=== PATIENT | male | born 2000 | race Two or more races ===

== ENCOUNTER 2025-01-08 21:13 | Emergency (ER) | payer OTHER ==
[~2025-01-08] VITALS: Ht 172.7 cm; Wt 72.7 kg
--- NOTE | 2025-01-08 21:28 | ED.PDOC ---
Psychiatric HPI Comments 24 year old male with a Hx of Bipolar was BIBA for the c/c of Altered Mental Status. Per EMS pt was at [facility], and was allowed to leave. Pt is noted to have left the facility around 7pm, proceeded to return to his room at 7:50pm, ingested a substance, and is noted to have been altered since. EMS states pt was compliant on scene, but is noted to be refusing to talk or discuss what he ingested. Time Seen by MD: 21:22 Reviewed Notes: Nurses Notes, Electronic Repair Troubleshooter Notes, Medications, Allergies Information Source: Emergency Med Personnel Mode of Arrival: EMS Severity: Unable to Care for Self Severity of Pain: None Severity of Mental Status: Moderate Severity of Symptoms: Moderate Timing: Hours Duration: Since onset, Hours Prehospital treatment: None Presents with: None Ingestion: Unknown Circumstance: Altered Mental Status Current substance abuse: Unknown Stressors: None History of: Bipolar Location: None Location of pain or injury: None Associated signs and symptoms: ETOH Family History Family History: Unknown Social History Smoker: Non-Smoker Alcohol: Denies ETOH Use Drugs: Denies Drug Use Lives In: Home Constitutional: denies: chills, diaphoresis, fatigue, fever, malaise, sweats, weakness, others EENTM: denies: blurred vision, double vision, ear bleeding, ear discharge, ear drainage, ear pain, ear ringing, eye pain, eye redness, hearing loss, mouth pain, mouth swelling, nasal discharge, nose bleeding, nose congestion, nose pain, photophobia, tearing, throat pain, throat swelling, voice changes, others Respiratory: denies: cough, hemoptysis, orthopnea, SOB at rest, shortness of breath, SOB with excertion, stridor, wheezing, others Cardiovascular: denies: chest pain, dizzy spells, diaphoresis, Dyspnea on exertion, edema, irregular heart beat, left arm pain, lightheadedness, palpitations, PND, syncope, others Gastrointestinal: denies: abdomen distended, abdominal pain, blood streaked bowels, constipated, diarrhea, dysphagia, difficulty swallowing, hematemesis, melena, nausea, poor appetite, poor fluid intake, rectal bleeding, rectal pain, vomiting, others Genitourinary: denies: burning, dysuria, flank pain, frequency, hematuria, incontinence, penile discharge, penile sore, pain, testicle pain, testicle swelling, urgency, others Neurological: denies: dizziness, fainting, headache, left sided numbness, left sided weakness, numbness, paresthesia, pre-existing deficit, right sided numbness, right sided weakness, seizure, speech problems, tingling, tremors, weakness, others Musculoskeletal: denies: back pain, gout, joint pain, joint swelling, muscle pain, muscle stiffness, neck pain, others Integumetry: denies: bruises, change in color, change in hair/nails, dryness, laceration, lesions, lumps, rash, wounds, others Allergic/Immunocompromised: denies: Difficulty Healing, Frequent Infections, Hives, Itching, others Hematologic/Lymphatic: denies: anemia, blood clots, easy bleeding, easy bruising, swollen glands, others Endocrine: denies: excessive hunger, excessive sweating, excessive thirst, excessive urination, flushing, intolerance to cold, intolerance to heat, unexplained weight gain, unexplained weight loss, others Psychiatric: denies: anxiety, bipolar disorder, depression, hopeless, panic disorder, schizophrenia, sleepless, suicidal, others Unable to Obtain due to: Altered Mental Status All Other Systems: Reviewed and Negative Physical Exam General Appearance: Moderate Distress, Normal, Other (Altered) HEENT: Normal ENT Inspection, Pharynx Normal, TMs Normal Neck: Full Range of Motion, Non-Tender, Normal, Normal Inspection Respiratory: Chest Non-Tender, Lungs Clear, No Accessory Muscle Use, No Respiratory Distress, Normal Breath Sounds Cardiovascular: No Edema, No JVD, No Murmur, No Gallop, Normal Peripheral Pulses, Regular Rate/Rhythm Breast Exam: Deferred Gastrointestinal: Non Tender, No Pulsatile Mass, Normal Bowel Sounds, Soft Genitalia: Deferred Pelvic: Deferred Rectal: Deferred Extremities: No calf tenderness, Normal capillary refill, Normal inspection, Normal range of motion, Non-tender, No pedal edema Musculoskeletal : Apperance: Normal Neurologic: Disoriented, No Motor Deficits, Normal Affect, No Sensory Deficits, Other (Altered) Cerebellar Function: Normal Reflexes: Normal Skin: Dry, Normal Color, Warm Lymphatic: No Adenopathy Was a procedure done? Was a procedure done?: No Psych Differential Dx Psych. Differential Dx: Anxiety, Bipolar Disorder, Depression, Hopeless, S chizoprenia, Sleepless, Suicidal OD Differential Dx: Alcohol Abuse, Anxiety, Bipolar Disorder, Conversion Disorder, Delirium, Depression, Drug Overdose, Accidental, Intentional, Hallucinations, Panic Disorder, Personality Disorder, Schizophrenia, Substance Abuse, Suicidal Attempt Suicidal Differential Dx: Alcohol Abuse, Anxiety, Bipolar Disorder, Conversion Disorder, Depression, Personality Disorder, Schizoprenia, Substance Abuse Intoxication Differential Dx: Alcohol Withdraw Syndrome, Hallucinations, Dehydration, Depression, Drug-Induced Psychosis, Electrolyte Imbalance, Encephalopathy, Intoxication, Medical Noncompliance, Personality Disorder, Schizophrenia, Substance Abuse Disorder X-Ray, Labs, Meds, VS Vital Signs Date Time Temp Pulse Resp B/P (MAP) Pulse Ox O2 Delivery O2 Flow Rate FiO2 01/09/25 02:00 80 16 113/61 (78) 96 01/09/25 00:00 84 15 117/78 (91) 94 01/08/25 21:55 98.6 88 11 115/84 (94) 94 98.6 01/08/25 21:27 98.2 82 18 144/86 (105) 95 98.2 01/08/25 21:26 Room Air* 0 21 Lab Test 01/08/25 21:32 Range/Units White Blood Count 10.4 4.4-10.8 10^3/uL Red Blood Count 5.17 4.5-5.90 10^6/uL Hemoglobin 16.0 13.5-17.5 g/dL Hematocrit 45.0 41.0-53.0 % Mean Corpuscular Volume 87.1 80.0-100.0 fL Mean Corpuscular Hemoglobin 31.0 28.0-32.0 pg Mean Corpuscular Hemoglobin Concent 35.6 32.0-36.0 g/dL Red Cell Distribution Width 13.5 11.8-14.3 % Platelet Count 206 140-450 10^3/uL Mean Platelet Volume 7.9 6.9-10.8 fL Neutrophils (%) (Auto) 72.0 37.0-80.0 % Lymphocytes (%) (Auto) 18.0 10.0-50.0 % Monocytes (%) (Auto) 9.1 0.0-12.0 % Eosinophils (%) (Auto) 0.5 0.0-7.0 % Basophils (%) (Auto) 0.4 0.0-2.0 % Neutrophils # (Auto) 7.5 1.6-8.6 10 ^3/uL Lymphocytes # (Auto) 1.9 0.4-5.4 10 ^3/uL Monocytes # (Auto) 0.9 0-1.3 10 ^3/uL Eosinophils # (Auto) 0 0-0.8 10 ^3/uL Basophils # (Auto) 0 0-0.2 10 ^3/uL Nucleated Red Blood Cells 0.1 % Sodium Level 139 136-145 mmol/L Potassium Level 3.5 3.5-5.1 mmol/L Chloride Level 103 98-107 mmol/L Carbon Dioxide Level 26 20-31 mmol/L Anion Gap 10 5-15 Blood Urea Nitrogen 10 9-23 mg/dL Creatinine 1.00 0.700-1.30 mg/dL Glomerular Filtration Rate Calc 107 >90 mL/min BUN/Creatinine Ratio 10.0 10.0-20.0 Serum Glucose 91 74-106 mg/dL Calcium Level 10.5 H 8.7-10.4 mg/dL Total Bilirubin 1.2 H 0.2-1.0 mg/dL Aspartate Amino Transferase (AST) 33 13-40 U/L Alanine Aminotransferase (ALT) 9 7-40 U/L Alkaline Phosphatase 76 46-116 U/L Total Protein 8.2 5.7-8.2 g/dL Albumin 5.4 H 3.2-4.8 g/dL Salicylates Level < 3.0 -30 mg/dL Acetaminophen Level < 2.0 L 10.0-20.0 UG/ML Plasma/Serum Blood Alcohol < 3.0 <10 mg/dL PATIENT: SHANNON ANGEL ACCT: [id number] UNIT: [id number] : 2000 LOC: ER ROOM / BED: / AGE / SEX: 24 / M ADM STATUS: REG ER SERVICE 22 ORDERING PHYSICIAN: YURIDIA YANCEY MD PROCEDURE(s): HWOCT - HEAD WITHOUT CONTRAST REASON: ALOC ORDER NUMBER(s): [id number], ACCESSION NUMBER(s): [id number] CT HEAD WITHOUT CONTRAST INDICATION: ALOC COMPARISON: None TECHNIQUE: CT of the head without intravenous contrast. RADIATION DOSE: CTDIvol: mGy, DLP: mGy*cm FINDINGS: There is no evidence of intracranial hemorrhage, infarct, extra-axial collection, mass effect, midline shift, herniation or hydrocephalus. The ventric les, sulci and cisterns are normal. The joyner-white differentiation is normal. Visualized paranasal sinuses and mastoid air cells are clear. Soft tissues and osseous structures are unremarkable. IMPRESSION: No intracranial abnormality identified. Time of 1ST Reevaluation: 21:53 Reevaluation 1ST: Unchanged Patient Education/Counseling: Diagnosis, Treatment, Need For Follow Up Family Education/Counseling: No Family Present Departure 1 Departure Time of Disposition: 02:00 Impression: Primary Impression: Hallucinogenic mushrooms use disorder, severe Disposition: 01 HOME / SELF CARE / HOMELESS Condition: Stable Discharged With: Self Critical Care Note Critical Care Time?: No Stability Stability form required: No Heart Score Heart Score: Heart Score Response (Comments) Value History N/A 0 EKG N/A 0 Age N/A 0 Risk Factors N/A 0 Troponin N/A 0 Total 0 I personally scribed for YURIDIA YANCEY MD ([email or web address]) on 01/08/25 at 21:28. Electronically submitted by Cj Davis ([email or web address]). I personally scribed for YURIDIA YANCEY MD ([email or web address]) on 01/08/25 at 23:42. Electronically submitted by Cj Davis ([email or web address]). YURIDIA YANCEY MD Jan 08, 2025 21:28
[2025-01-08 21:54] LABS: Hematocrit 45.0 % (41.0-53.0); Hemoglobin 16.0 g/dL (13.5-17.5); Mean Corpuscular Hemoglobin 31.0 pg (28.0-32.0); Mean Corpuscular Volume 87.1 fL (80.0-100.0); Nucleated Red Blood Cells % 0.1 %
[2025-01-08 21:55] VITALS: TEMP 98.6
[2025-01-08 22:08] LABS: Alkaline Phosphatase 76 U/L (46-116); Anion Gap 10 (5-15); BUN/Creatinine Ratio 10.0 (10.0-20.0); Bilirubin, Total 1.2 mg/dL (0.2-1.0); Blood Urea Nitrogen 10 mg/dL (9-23); Carbon Dioxide 26 mmol/L (20-31); Chloride 103 mmol/L (98-107); Glucose 91 mg/dL (74-106); Potassium 3.5 mmol/L (3.5-5.1); Sodium 139 mmol/L (136-145); Total Protein 8.2 g/dL (5.7-8.2)
[2025-01-08 22:09] LABS: Acetaminophen < 2.0 UG/ML (10.0-20.0); Alanine Aminotransferase 9 U/L (7-40); Albumin 5.4 g/dL (3.2-4.8); Calcium 10.5 mg/dL (8.7-10.4); Salicylate < 3.0 mg/dL (-30)
--- NOTE | 2025-01-08 23:05 | DVH ---
CT HEAD WITHOUT CONTRAST INDICATION: ALOC COMPARISON: None TECHNIQUE: CT of the head without intravenous contrast. RADIATION DOSE: CTDIvol: mGy, DLP: mGy*cm FINDINGS: There is no evidence of intracranial hemorrhage, infarct, extra-axial collection, mass effect, midli ne shift, herniation or hydrocephalus. The ventricles, sulci and cisterns are normal. The joyner-white differentiation is normal. Visualized paranasal sinuses and mastoid air cells are clear. Soft tissues and osseous structures are unremarkable. IMPRESSION: No intracranial abnormality identified.
[2025-01-09 02:00] VITALS: BP 113/61; PULSE 80; RESP 16; O2SAT 96
== END 2025-01-09 03:25 | disposition home or self-care (01) ==
LOC: ER 21:13 → EDBD 21:13 → ER 01-09 03:25
DX: F16.90 Hallucinogen use, unspecified, uncomplicated (principal)
CPT/HCPCS: 36415; 70450; 80053; 80320; 80329; 82947; 85025